=== PATIENT | male | born 1965 | race Hispanic/Latino ===

== ENCOUNTER 2021-03-30 20:33 | Emergency (ER) | payer OTHER ==
--- NOTE | 2021-03-31 01:00 | Emergency Department Report ---
ED General Adult HPI - General Chief complaint: Dyspnea/Respdistress Stated complaint: TACHYCARDIA AND SOB PUI?: Yes Time Seen by Provider: 03/31/21 00:49 Source: patient, EMS ( EMS documentation not available at time of chart dictation ), RN notes reviewed, old records reviewed Mode of arrival: Stretcher Limitations: No Limitations - History of Present Illness Initial comments: Primary CARE doctor: Liu foss. The patient is a pleasant 56-year-old gentleman. He is not known to myself previously. He is sent to this emergency room by a local [facility] [place] [facility] facility. His past medical history includes obesity, COPD, emphysema, pulmonary nodules, history of tobacco use, cutaneous lupus, up-to-date with COVID-19 v accination. Patient was seen at outpatient [facility], with the patient articulated complaint of probable COPD exacerbation. He reports cough, wheezing, shortness of breath. He was seen in the aforementioned [facility] [place] facility, and received nebulizer therapy, Solu-Medrol, magnesium, had an x-ray of the chest which was unremarkable. Patient was found to have persistent tachycardia, which is asymptomatic by the patient's history, after administration of albuterol therapy and the aforementioned therapy. The patient reports that he is up-to-date on COVID-19 vaccination, and he denies travel, surgery, immobilization, new leg pain/leg swelling. In addition, the patient was found to have a heart rate in the 120s at the [facility] [place] facility, and had an elevated adjusted D-dimer at 0.48 (this is considered elevated for the [facility] [place] facility standards.) The patient was thus referred to this emergency room for persistent tachycardia, and elevated D- dimer, of uncertain significance. At the moment, the patient states that he feels back to his baseline. He has mild heart racing at this time. He denies loss of taste and smell. -: Gradual, days(s) Consistency: other (Symptoms are improved) Improves with: medication, rest Worsens with: other (Denies exacerbating symptom) - Related Data Previous Rx's Medication Instructions Recorded Last Taken Type Albuterol Sulfate [Albuterol 0.63% 0.63 mg IH Q4HR PRN #2 ml 03/31/21 Unknown Rx NEBS] Albuterol Sulfate [Proair 90 mcg IH Q4HR PRN #2 aer.pow.ba 03/31/21 Unknown Rx Respiclick] Ipratropium (Nf) [Atrovent] 2 puff IH Q6HR PRN #1 inha 03/31/21 Unknown Rx Ipratropium [Atrovent NEB] 0.5 mg IH Q4HR #2 ml 03/31/21 Unknown Rx predniSONE [Deltasone] 40 mg PO QDAY #8 tab 03/31/21 Unknown Rx Allergies Allergy/AdvReac Type Severity Reaction Status Date / Time No Known Allergies Allergy Verified 03/30/21 21:21 ED Review of Systems ROS: Stated complaint: TACHYCARDIA AND SOB Other details as noted in HPI Constitutional: other (Denies loss of taste and smell). denies: fever ENT: congestion Respiratory: cough, shortness of breath, SOB with exertion, SOB at rest, wheezing Cardiovascular: palpitations. denies: chest pain Gastrointestinal: denies: abdominal pain, nausea, vomiting, hematemesis, melena, hematochezia Genitourinary: denies: dysuria Musculoskeletal: denies: myalgia Neurological: denies: weakness Hematological/Lymphatic: denies: easy bleeding ED Past Medical Hx - Medications Home Medications: Home Medications Medication Instructions Recorded Confirmed Last Taken Type Albuterol Sulfate [Albuterol 0.63% 0.63 mg IH Q4HR PRN #2 ml 03/31/21 Unknown Rx NEBS] Albuterol Sulfate [Proair 90 mcg IH Q4HR PRN #2 aer.pow.ba 03/31/21 Unknown Rx Respiclick] Ipratropium (Nf) [Atrovent] 2 puff IH Q6HR PRN #1 inha 03/31/21 Unknown Rx Ipratropium [Atrovent NEB] 0.5 mg IH Q4HR #2 ml 03/31/21 Unknown Rx predniSONE [Deltasone] 40 mg PO QDAY #8 tab 03/31/21 Unknown Rx ED Physical Exam - General Limitations: No Limitations General appearance: alert, in no apparent distress, obese - Head Head exam: Present: atraumatic, normocephalic - Eye Eye exam: Present: normal appearance, EOMI. Absent: nystagmus - ENT ENT exam: Present: normal exam, normal orophraynx, mucous membranes moist, normal external ear exam - Neck Neck exam: Present: normal inspection, full ROM. Absent: tenderness, meningismus - Respiratory Respiratory exam: Present: decreased breath sounds. Absent: respiratory distress, wheezes, rales, rhonchi, stridor - Cardiovascular Cardiovascular Exam: Present: normal rhythm, tachycardia, normal heart sounds. Absent: bradycardia, irregular rhythm, systolic murmur, diastolic murmur, rubs, gallop - GI/Abdominal GI/Abdominal exam: Present: soft. Absent: distended, tenderness, guarding, rebound, rigid, pulsatile mass - Rectal Rectal exam: Present: deferred - Extremities Exam Extremities exam: Present: normal inspection, full ROM, pedal edema (1+ edema in the bilateral lower extremities), other (2+ pulses noted in the bilateral upper and lower extremities. There is no palpable cord. negative Homans sign. Muscular compartments are soft. The pelvis is stable.). Absent: calf tenderness - Back Exam Back exam: Present: normal inspection. Absent: tenderness, CVA tenderness (R), CVA tenderness (L), paraspinal tenderness, vertebral tenderness - Neurological Exam Neurological exam: Present: alert, oriented X3, normal gait, other (No facial droop. Tongue midline. Extraocular movements intact bilaterally. Facial sen sation intact to light touch in V1, V2, V3 distribution bilaterally. 5 and a 5 strength in 4 extremities. Sensation intact to light touch in 4 extremities.). Absent: motor sensory deficit - Psychiatric Psychiatric exam: Present: anxious - Skin Skin exam: Present: warm, dry, intact, normal color. Absent: rash ED Course Vital Signs 03/31/21 03/31/21 02:29 02:45 Temperature 98.1 F Pulse Rate 94 H Respiratory 18 18 Rate Blood Pressure 140/91 [Left] O2 Sat by Pulse 97 96 Oximetry - Reevaluation(s) Reevaluation #1: 03/31/21 02:12 Differential diagnosis, including but not limited to: Pneumonia, bronchitis, COPD exacerbation, iatrogenic tachycardia, pulmonary embolism Assessment and plan: 56-year-old gentleman, who was referred to the emergency room for tachycardia, and D-dimer that is elevated. In the emergency room, his heart rate is 103 bpm, his lung sounds are clear, and he is in no acute dis tress. Patient denies travel, surgery, leg pain, leg swelling which is new or different, immobilization, and DVT/pulmonary embolism risk factors. He reports a history of cutaneous lupus, but denies systemic lupus. I find the patient to be low risk by Wells criteria for pulmonary embolism, and low pretest probability for pulmonary embolism. His elevated D-dimer at the [facility] [place] facility is likely a false positive. His tachycardia is likely secondary to his beta agonist therapy for his underlying COPD disease. Nevertheless, given that this patient is referred to this emergency room for the aforementioned reasons, we will repeat his laboratory studies, x-ray of the chest, EKG, and repeat a D-dimer. We will reassess after data points have resulted. Have also requested that vital signs be updated and placed in this patient's chart I discussed this plan of care with the patient. He articulated understanding 03/31/21 02:34 Reassessed. Tachycardia resolved. Laboratory studies unremarkable. He is in no acute respiratory distress. He would like to be discharged. We will discharge with steroids, albuterol, Atrovent, instructions to follow-up with [facility]/pulmonology. As a courtesy, I will discuss with the [facility] network. However, this patient is medically suitable at this time for discharge 03/31/21 02:58 Reevaluation #2: 03/31/21 02:[address] Oleg shah [facility] who will arrange outpatient follow up ED Medical Decision Making - Lab Data Result diagrams: 03/31/21 01:10 03/31/21 01:10 Lab Results 03/31/21 Range/Units 01:10 WBC 8.7 (4.5-11.0) K/mm3 RBC 4.94 (3.65-5.03) M/mm3 Hgb 15.4 H (11.8-15.2) gm/dl Hct 46.2 H (35.5-45.6) % MCV 93 (84-94) fl MCH 31 (28-32) pg MCHC 33 (32-34) % RDW 12.9 L (13.2-15.2) % Plt Count 238 (140-440) K/mm3 Lymph % (Auto) 8.9 L (13.4-35.0) % [place] % (Auto) 2.2 (0.0-7.3) % Eos % (Auto) 0.1 (0.0-4.3) % Baso % (Auto) 1.5 (0.0-1.8) % Lymph # (Auto) 0.8 L (1.2-5.4) K/mm3 [place] # (Auto) 0.2 (0.0-0.8) K/mm3 Eos # (Auto) 0.0 (0.0-0.4) K/mm3 Baso # (Auto) 0.1 (0.0-0.1) K/mm3 Seg Neutrophils % 87.3 H (40.0-70.0) % Seg Neutrophils # 7.6 (1.8-7.7) K/mm3 Vital Signs 03/31/21 02:29 Temperature 98.1 F Pulse Rate 94 H Respiratory 18 Rate Blood Pressure 140/91 [Left] O2 Sat by Pulse 97 Oximetry Lab Results 03/31/21 03/31/21 03/31/21 Range/Units 01:10 01:10 01:10 WBC 8.7 (4.5-11.0) K/mm3 RBC 4.94 (3.65-5.03) M/mm3 Hgb 15.4 H (11.8-15.2) gm/dl Hct 46.2 H (35.5-45.6) % MCV 93 (84-94) fl MCH 31 (28-32) pg MCHC 33 (32-34) % RDW 12.9 L (13.2-15.2) % Plt Count 238 (140-440) K/mm3 Lymph % (Auto) 8.9 L (13.4-35.0) % [place] % (Auto) 2.2 (0.0-7.3) % Eos % (Auto) 0.1 (0.0-4.3) % Baso % (Auto) 1.5 (0.0-1.8) % Lymph # (Auto) 0.8 L (1.2-5.4) K/mm3 [place] # (Auto) 0.2 (0.0-0.8) K/mm3 Eos # (Auto) 0.0 (0.0-0.4) K/mm3 Baso # (Auto) 0.1 (0.0-0.1) K/mm3 Seg Neutrophils % 87.3 H (40.0-70.0) % Seg Neutrophils # 7.6 (1.8-7.7) K/mm3 D-Dimer 201.76 (0-234) ng/mlDDU Sodium 138 (137-145) mmol/L Potassium 4.0 (3.6-5.0) mmol/L Chloride 101.2 (98-107) mmol/L Carbon Dioxide 21 L (22-30) mmol/L Anion Gap 20 mmol/L BUN 14 (9-20) mg/dL Creatinine 1.1 (0.8-1.3) mg/dL Estimated GFR > 60 ml/min BUN/Creatinine Ratio 13 % Glucose 140 H (75-100) mg/dL Calcium 9.3 (8.4-10.2) mg/dL Magnesium 2.40 H (1.7-2.3) mg/dL Troponin T (0.00-0.029) ng/mL NT-Pro-B Natriuret Pep (0-900) pg/mL TSH (0.270-4.200) mlU/mL 03/31/21 03/31/21 Range/Units 01:10 01:10 WBC (4.5-11.0) K/mm3 RBC (3.65-5.03) M/mm3 Hgb (11.8-15.2) gm/dl Hct (35.5-45.6) % MCV (84-94) fl MCH (28-32) pg MCHC (32-34) % RDW (13.2-15.2) % Plt Count (140-440) K/mm3 Lymph % (Auto) (13.4-35.0) % [place] % (Auto) (0.0-7.3) % Eos % (Auto) (0.0-4.3) % Baso % (Auto) (0.0-1.8) % Lymph # (Auto) (1.2-5.4) K/mm3 [place] # (Auto) (0.0-0.8) K/mm3 Eos # (Auto) (0.0-0.4) K/mm3 Baso # (Auto) (0.0-0.1) K/mm3 Seg Neutrophils % (40.0-70.0) % Seg Neutrophils # (1.8-7.7) K/mm3 D-Dimer (0-234) ng/mlDDU Sodium (137-145) mmol/L Potassium (3.6-5.0) mmol/L Chloride (98-107) mmol/L Carbon Dioxide (22-30) mmol/L Anion Gap mmol/L BUN (9-20) mg/dL Creatinine (0.8-1.3) mg/dL Estimated GFR ml/min BUN/Creatinine Ratio % Glucose (75-100) mg/dL Calcium (8.4-10.2) mg/dL Magnesium (1.7-2.3) mg/dL Troponin T < 0.010 (0.00-0.029) ng/mL NT-Pro-B Natriuret Pep 89.82 (0-900) pg/mL TSH 0.726 (0.270-4.200) mlU/mL - EKG Data -: EKG Interpreted by Wi EKG shows normal: sinus rhythm Rate: tachycardia - EKG Data 03/31/21 02:07 The EKG is interpreted 01: 1 7 Sinus rhythm, rate 113 bpm. There is a normal axis. There is normal P wave axis. The intervals are within normal limits. This is an unremarkable EKG. This is not a STEMI. This appears to be grossly unchanged when compared to prior EKG when compared to [facility], which is obtained March 30, 2021, at [facility] - Radiology Data Radiology results: pending, report reviewed, image reviewed CHEST 2 VIEWS INDICATION / CLINICAL INFORMATION: Dyspnea. COMPARISON: None available. FINDINGS: SUPPORT DEVICES: None. HEART / MEDIASTINUM: No significant abnormality. LUNGS / PLEURA: No significant pulmonary abnormality. No significant pleural effusion. No pneumothorax. ADDITIONAL FINDINGS: No significant additional findings. IMPRESSION: 1. No acute abnormality of the chest. Signer Name: Lázaro Jain MD Signed: 03/31/2021 12:41 AM Workstation Name: [id number] Critical care attestation.: If time is entered above; I have spent that time in minutes in the direct care of this critically ill patient, excluding procedure time. ED Disposition Clinical Impression: COPD (chronic obstructive pulmonary disease), History of tachycardia, Encounter for medical screening examination Disposition: HOME / SELF CARE / HOMELESS Is pt being admited?: No Does the pt Need Aspirin: No Condition: Good Instructions: Chronic Obstructive Pulmonary Disease Exacerbation, Chronic Obstructive Pulmonary Disease (ED) Additional Instructions: Patient most likely had a COPD exacerbation. He is not wheezing at this time. Please take the albuterol, Atrovent, and steroids as directed. History of tachycardia is likely secondary to nebulizer/breathing medications which were administered at the [facility]. X-ray of the chest was unremarkable, laboratory studies were unremarkable, and patient had a negative D-dimer. Patient symptoms are very unlikely to be coming from a pulmonary embolism, or DVT. We do recommend that the patient follow-up with an outpatient primary care doctor or application defense manager in 5 to 7 days for repeat checkup and evaluation. Please have your private physician contact the medical records department to obtain copies of your laboratory studies and radiology studies. Please return to the emergency room right away with new pain, worsened pain, migration of pain, projectile vomiting, change in mental status, confusion, inability to tolerate liquid feeds, new, worsened or different symptoms not present on the initial emergency room evaluation Prescriptions: Albuterol Sulfate [Albuterol 0.63% NEBS] 0.63 mg IH Q4HR PRN #2 ml PRN Reason: Wheezing Ipratropium (Nf) [Atrovent] 2 puff IH Q6HR PRN #1 inha PRN Reason: Wheezing Ipratropium [Atrovent NEB] 0.5 mg IH Q4HR #2 ml predniSONE [Deltasone] 40 mg PO QDAY #8 tab Albuterol Sulfate [Proair Respiclick] 90 mcg IH Q4HR PRN #2 aer.pow.ba PRN Reason: Wheezing Referrals: BETZAIDA ROCHE MD [Staff Physician] - 3-5 Days [facility] [Provider Group] - 3-5 Days
--- NOTE | 2021-03-31 01:45 | XRay Report ---
CHEST 2 VIEWS INDICATION / CLINICAL INFORMATION: Dyspnea. COMPARISON: None available. FINDINGS: SUPPORT DEVICES: None. HEART / MEDIASTINUM: No significant abnormality. LUNGS / PLEURA: No significant pulmonary abnormality. No significant pleural effusion. No pneumothora x. ADDITIONAL FINDINGS: No significant additional findings. IMPRESSION: 1. No acute abnormality of the chest. Signer Name: Lázaro Jain MD Signed: 03/31/2021 1:41 AM Workstation Name: [id number]
[2021-03-31 01:58] LABS: Basophils # (Auto) 0.1 K/mm3 (0.0-0.1); Basophils % (Auto) 1.5 % (0.0-1.8); Eosinophils % (Auto) 0.1 % (0.0-4.3); Hematocrit 46.2 % (35.5-45.6); Hemoglobin 15.4 gm/dl (11.8-15.2); Lymphocytes # (Auto) 0.8 K/mm3 (1.2-5.4); Lymphocytes % (Auto) 8.9 % (13.4-35.0); Mean Corpuscular HGB Conc 33 % (32-34); Mean Corpuscular Volume 93 fl (84-94); Monocytes # (Auto) 0.2 K/mm3 (0.0-0.8); Monocytes % (Auto) 2.2 % (0.0-7.3); Platelet Count 238 K/mm3 (140-440); Red Blood Count 4.94 M/mm3 (3.65-5.03); Red Cell Distribution Width 12.9 % (13.2-15.2)
[2021-03-31 02:16] LABS: BUN/Creatinine Ratio 13; Blood Urea Nitrogen 14 mg/dL (9-20); Calcium 9.3 mg/dL (8.4-10.2); Hemolysis Index 6
[2021-03-31 02:30] VITALS: BP 140/91
--- NOTE | 2021-03-31 12:04 | Electrocardiograph Report ---
[facility] Test Date: 2021-03-31 Test Time: 01:17:32 Pat Name: ADAM THOMPSON Department: Room: Gender: M [employer] Agent: Claudia OWEN : 1965 Requested By: SHANE GONZALES Order Number: [id number] Reading MD: Jorge Guerrero Measurements Intervals [place] Rate: 103 P: 50 [place]: 154 QRS: 43 QRSD: 90 T: 56 QT: 333 QTc: 436 Interpretive Statements Sinus tachycardia No previous ECG available for comparison Electronically Signed On 03-31-2021 12:03:59 EST by Jorge Guerrero
== END 2021-03-31 02:45 | disposition home or self-care (01) ==
LOC: ED 20:33
DX: J44.9 Chronic obstructive pulmonary disease, unspecified (principal); Z79.899 Other long term (current) drug therapy
CPT/HCPCS: 36415; 71046; 80048; 83735; 83880; 84443; 84484; 85025; 85379; 93005; 99284